=== PATIENT | male | born 1995 | race Two or more races ===

== ENCOUNTER 2016-11-29 11:18 | Emergency (ER) | payer SELFPAY ==
[2016-11-29 11:35] VITALS: BP 123/79; BMI 20.9
--- NOTE | 2016-11-29 12:01 | DR.GENAD ---
HPI - PCP Primary Care Physician: NFD - Complaint/Symptoms Chief Complaint Doctors Comments: PMHx negative, denies fever, vomiting or diarrhea. Chief Complaint:: DIFF BREATHING AND CHEST PAINS Self Treatment fo Chief Complaint: ONSET ABOUT 1 HR AGO IN [employer]. - Source History Provided: Patient, Friend, Other - Mode of Arrival Mode of Arrival: Ambulatory - Timing Onset of Chief Complaint: 11/29/16 PMH - PMH Past Medical History: No Past Surgical History: No - Family History History of Family Medical Conditions: No - Social History Alcohol Use: None Lives With: Family Lives Where: Home - infectious screening In the last 2 months have you had wt loss of >10#?: NO Have you had fever, night sweats or hemotysis?: No Have you traveled outside the country in the last 6 months?: Yes Details about travelin-3 WEEKS AGO Isolation: Standard ROS - Review of Systems Constitutional: No Symptoms Reported Eyes: No Symptoms Reported ENTM: No Symptoms Reported Respiratoy: No Symptoms Reported Cardiovascular: No Symptoms Reported Gastrointestinal/Abdominal: No Symptoms Reported Genitourinary: No Symptoms Reported Neurological: No Symptoms Reported Musculoskeletal: No Symptoms Reported Integumentary: No Symptoms Reported Hematologic/Lymphatic: No Symptoms Reported Endocrine: No Symptoms Reported Psychiatric: No Symptoms Reported All Other Systems: Reviewed and Negative PE - Vital Signs Vitals: Temperature 100.2 F Pulse Rate 81 Respiratory Rate 18 Blood Pressure 123/79 O2 Sat by Pulse Oximetry 98 - General Limitations: No Limitations General Appearance: Alert, In No Apparent Distress - Head Head Exam: Normal Inspection, Atraumatic - Eyes Eye exam: Normal Appearance, PERRL, EOMI - ENT ENT Exam: Normal Exam External Ear Exam: Normal External Inspection TM/Canal Exam: Bilateral Normal Nose Exam: Normal Nose Exam Mouth Exam: Normal Inspection Throat Exam: Normal Inspection - Neck Neck Exam: Normal Inspection - Chest Chest Inspection: Normal Inspection - Respiratory Respiratory Exam: Normal Lung Sounds Bilat Respiratory Exam: Bilateral Clear to Auscultation - Cardiovascular Cardiovascular Exam: Regular Rate, Normal Rhythm - Abdominal Exam Abdominal Exam: Normal Inspection Abdominal Tenderness: negative: RUQ, RLQ, LUQ, LLQ, Epigastrium, Suprapubic, Diffuse, Mild, Moderate, Severe, Other - Extremities Extremities Exam: Normal Inspection, Full ROM - Back Back Exam: Normal Inspection, Full ROM - Neurologic Neurological Exam: Alert, Oriented X3, CN II-XII Intact - Psychiatric Psychiatric Exam: Normal Affect - Skin Skin Exam: Warm, Dry, Intact ROR - Labs Reviewed Laboratory Results Reviewed?: Yes (eosinophin elevated to 0.7%) Result Diagrams: 11/29/16 12:05 11/29/16 12:05 Laboratory: WBC 7.4 X10^3/uL (3.6-10.0) 11/29/16 12:05 RBC 5.52 X10^6/uL (4.7-6.0) 11/29/16 12:05 Hgb 16.6 g/dL (13.5-18.0) 11/29/16 12:05 Hct 47.4 % (42.0-54.0) 11/29/16 12:05 MCV 85.8 fL (80.0-100.0) 11/29/16 12:05 MCH 30.1 pg (27.0-34.0) 11/29/16 12:05 MCHC 35.1 g/dL (33.0-35.0) H 11/29/16 12:05 RDW 13.5 % (11.6-16.5) 11/29/16 12:05 Plt Count 212 X10^3/uL (150.0-450.0) 11/29/16 12:05 MPV 8.1 fL (7.4-11.0) 11/29/16 12:05 Neut % 65.3 % (42.0-75.0) 11/29/16 12:05 Lymph % 22.4 % (21.0-51.0) 11/29/16 12:05 [place] % 4.5 % (0.0-13.0) 11/29/16 12:05 Eos % 7.2 % (0.9-2.9) H 11/29/16 12:05 Baso % 0.6 % (0.2-1.0) 11/29/16 12:05 Neut # 4.8 x10^3/uL (2.2-4.8) 11/29/16 12:05 Lymph # 1.7 X10^3/uL (1.3-2.9) 11/29/16 12:05 [place] # 0.3 x10^3/uL (0.3-0.8) 11/29/16 12:05 Eos # 0.5 x10^3/uL (0.0-0.2) H 11/29/16 12:05 Baso # 0.0 X10^3/uL (0.0-0.1) 11/29/16 12:05 Absolute Nucleated RBC 0.0 /100WBC 11/29/16 12:05 Sodium 142 mmol/L (136-145) 11/29/16 12:05 Corrected Sodium TNP 11/29/16 12:05 Potassium 4.1 mmol/L (3.5-5.1) 11/29/16 12:05 Chloride 105 mmol/L (98-107) 11/29/16 12:05 Carbon Dioxide 27.1 mmol/L (21-32) 11/29/16 12:05 BUN 12 mg/dL (7-18) 11/29/16 12:05 Creatinine 1.26 mg/dL (0.70-1.30) 11/29/16 12:05 Est GFR (MDRD) Af Amer > 60 (>60) 11/29/16 12:05 Est GFR (MDRD) Non-Af > 60 (>60) 11/29/16 12:05 Glucose 107 mg/dL (65-99) H 11/29/16 12:05 Calcium 9.4 mg/dL (8.5-10.1) 11/29/16 12:05 - Diagnosis Discharge Problem: Idiopathic eosinophilia - Discharge Plan Condition: Stable - Follow ups/Referrals Follow ups/Referrals: NFD,None [Primary Care Provider] - 3 days - Instructions
[2016-11-29 12:18] LABS: BASOPHILS % (AUTO) 0.6 % (0.2-1.0); EOSINOPHILS # (AUTO) 0.5 x10^3/uL (0.0-0.2); EOSINOPHILS % (AUTO) 7.2 % (0.9-2.9); HEMATOCRIT 47.4 % (42.0-54.0); HEMOGLOBIN 16.6 g/dL (13.5-18.0); LYMPHOCYTES # (AUTO) 1.7 X10^3/uL (1.3-2.9); LYMPHOCYTES % (AUTO) 22.4 % (21.0-51.0); MEAN CORPUSCULAR HEMOGLOBIN 30.1 pg (27.0-34.0); MEAN CORPUSCULAR HGB CONC 35.1 g/dL (33.0-35.0); MEAN CORPUSCULAR VOLUME 85.8 fL (80.0-100.0); MEAN PLATELET VOLUME 8.1 fL (7.4-11.0); MONOCYTES # (AUTO) 0.3 x10^3/uL (0.3-0.8); MONOCYTES % (AUTO) 4.5 % (0.0-13.0); NEUTROPHILS # (AUTO) 4.8 x10^3/uL (2.2-4.8); NEUTROPHILS % (AUTO) 65.3 % (42.0-75.0); PLATELET COUNT 212 X10^3/uL (150.0-450.0); RED BLOOD COUNT 5.52 X10^6/uL (4.7-6.0); RED CELL DISTRIBUTION WIDTH 13.5 % (11.6-16.5); WHITE BLOOD COUNT 7.4 X10^3/uL (3.6-10.0)
[2016-11-29 12:24] LABS: BLOOD UREA NITROGEN 12 mg/dL (7-18); CALCIUM 9.4 mg/dL (8.5-10.1); CARBON DIOXIDE 27.1 mmol/L (21-32); CHLORIDE 105 mmol/L (98-107); CREATININE 1.26 mg/dL (0.70-1.30); GLUCOSE 107 mg/dL (65-99); SODIUM 142 mmol/L (136-145); eGFR BLACK RACES > 60 (>60); eGFR NON BLACK RACES > 60 (>60)
== END 2016-11-29 12:45 | disposition home or self-care (01) ==
LOC: ER 11:46
DX: D72.1 Eosinophilia (principal)
CPT/HCPCS: 36415; 80048; 85025; 99281; 99282